=== PATIENT | female | born 1975 | race Caucasian/White ===

== ENCOUNTER 2019-10-23 22:55 | Emergency (ER) | payer OTHER ==
[~2019-10-23] VITALS: Ht 165.1 cm; Wt 58.9 kg
[2019-10-23 22:58] VITALS: BP 116/76
--- NOTE | 2019-10-23 23:25 | NUR ---
assessment made. ERP at bedside.
[2019-10-23] MEDS ORDERED: DEXAMETHASONE 4 MG TABLET ONE (23:38)
[2019-10-23] MEDS ORDERED: IBUPROFEN 800 MG TABLET ONE (23:38)
--- NOTE | 2019-10-23 23:40 | NUR ---
patient medicated. flu / strep specimen obtained and sent to lab.
[2019-10-23 23:55] LABS: RAPID INFLUENZA A Negative (Negative); RAPID INFLUENZA B Negative (Negative)
[2019-10-24] MEDS ORDERED: DEXAMETHASONE 4 MG TABLET PO ONE
[2019-10-24] MEDS ORDERED: IBUPROFEN 800 MG TABLET PO ONE
== END 2019-10-24 01:06 | disposition home or self-care (01) ==
LOC: ED 23:33
DX: J02.8 Acute pharyngitis due to other specified organisms (principal); Z72.89 Other problems related to lifestyle
CPT/HCPCS: 87081; 87400; 87880; 99283

== ENCOUNTER 2019-11-06 10:43 | Inpatient (IN) | payer OTHER ==
[~2019-11-06] VITALS: Ht 165.1 cm; Wt 60.4 kg
--- NOTE | 2019-11-06 10:54 | NUR ---
FROM . SORE THROAT 10/21. L EAR PAIN SINCE MONDYA. ON AMOX FOR EAR INFECTION. SX NOT BETTER. VOMITING/DIZZY X3 DAYS. C/O CHLLS. DRY HEAVING ON ARRIVAL TO ROOM. ABS SNT BS NORMOACTIVE. VSS. TRIED TO TAKE ODT ZOFRAN AT HOME BUT VOMITED. STS HAD NEG CXR/FLU SWA/STREP TEST AT .
[2019-11-06] MEDS ORDERED: PROMETHAZINE 25 MG/ML, 1ML ONE (11:51)
[2019-11-06] MEDS ORDERED: OXYcodone/APAP 5/325MG TABLET ONE (11:52)
--- NOTE | 2019-11-06 11:58 | NUR ---
PT VSS. MEDS PER DEC. FAMILY AT BEDSIDE. LAB AT BEDSIDE. PLAN FOR CT. CALL BLEL IN REACH.
[2019-11-06] MEDS ORDERED: PROMETHAZINE 25 MG/ML, 1ML IM ONE (12:00)
[2019-11-06] MEDS ORDERED: OXYcodone/APAP 5/325MG TABLET PO ONE (12:00)
[2019-11-06 12:23] LABS: ANION GAP 5 mmol/L (5-15); CALCIUM 8.7 mg/dL (8.5-10.1); CHLORIDE 110 mmol/L (98-107)
[2019-11-06 12:25] LABS: BASOPHILS % (AUTO) 1 % (0-1); EOSINOPHILS # (AUTO) 0.03 x10^3/uL (0-0.4); EOSINOPHILS % (AUTO) 0 % (1-7); LYMPHOCYTES # (AUTO) 0.68 x10^3/uL (1-3.4); LYMPHOCYTES % (AUTO) 5 % (22-44); MD NO; MEAN CORPUSCULAR HEMOGLOBIN 29.9 pg (27.0-34.8); MEAN CORPUSCULAR HGB CONC 32.8 g/dL (32.4-35.8); MEAN CORPUSCULAR VOLUME 91.1 fL (80-100); MEAN PLATELET VOLUME 8.7 fL (7.4-10.4); MONOCYTES # (AUTO) 0.53 x10^3/uL (0.2-0.8); MONOCYTES % (AUTO) 4 % (2-9); NEUTROPHILS # (AUTO) 13.52 x10^3/uL (1.8-6.8); NEUTROPHILS % (AUTO) 91 % (42-75); PLATELET COUNT 391 x10^3/uL (130-400); RED BLOOD COUNT 4.23 x10^6/uL (3.82-5.3); RED CELL DISTRIBUTION WIDTH 13.8 % (9.6-15.2)
--- NOTE | 2019-11-06 12:42 | NUR ---
report to [facility]. as
--- NOTE | 2019-11-06 12:55 | NUR ---
REPORT FROM MILLA, ASSUME CARE OF PT AT THIS TIME. IV PLACED FOR CT. POC AND LAB RESULTS DISCUSSED, ALL QUESTIONS ANSWERED. CALL LIGHT WITHIN REACH, FAMILY Terrance BS.
[2019-11-06] MEDS ORDERED: OMNIPAQUE 350 MG/ML, 100ML BOTTLE ONE (13:44)
--- NOTE | 2019-11-06 14:00 | NUR ---
ERP IN TO RECHECK PT.
[2019-11-06] MEDS ORDERED: SODIUM CHLORIDE 0.9% 1,000 ML IV ONE (14:12)
[2019-11-06] MEDS ORDERED: MORPHINE SULFATE 4 MG/ML, 1ML ONE (14:29)
[2019-11-06] MEDS ORDERED: AMPICILLIN/SULBACTAM 3 GM in SODIUM CHLORIDE 0.9% 100 ML IV ONE (14:30)
[2019-11-06] MEDS: MORPHINE SULFATE 4 MG/ML, 1ML IVPush PRN ×2 (14:33→16:45)
--- NOTE | 2019-11-06 14:33 | NUR ---
PT MEDICATED FOR 7/10 PAIN, NS INFUSING PER ERP ORDER.
[2019-11-06] MEDS ORDERED: CEFTRIAXONE PMX 1GM/50ML 50 ML IV ONE (15:00)
--- NOTE | 2019-11-06 15:05 | NUR ---
maria dolores spoke with dr abraham
--- NOTE | 2019-11-06 15:20 | NUR ---
[facility] IN TO SEE PT.
[2019-11-06] MEDS ORDERED: hydrALAzine 20 MG/ML, 1ML IVPush PRN (15:30)
[2019-11-06] MEDS ORDERED: GUAIFENESIN/DM 200-20MG, 10ML UDC PO PRN (15:30)
[2019-11-06] MEDS ORDERED: ONDANSETRON 2MG/ML, 2ML IVPush PRN (15:30)
[2019-11-06] MEDS ORDERED: POLYETHYLENE GLYCOL 17 GM PACKET PO PRN (15:30)
[2019-11-06] MEDS ORDERED: TEMAZEPAM 15 MG CAPSULE PO PRN (15:30)
[2019-11-06] MEDS ORDERED: LABETALOL 5MG/ML, 20ML IVPush PRN (15:30)
[2019-11-06] MEDS ORDERED: BUTALB/APAP/CAFFEINE 50MG/325MG/40MG PO PRN (15:30)
--- NOTE | 2019-11-06 17:15 | NUR ---
CALL X 1, RN WILL CALL BACK.
--- NOTE | 2019-11-06 17:38 | NUR ---
TASK RN: ENT (DR. CEVALLOS) AT BEDSIDE- REPORTS NO NEED FOR FURTHER INTERVENTION (NO SURGERY) OTHER THAN ABX. ALLOWED TO EAT, ETC
[2019-11-06] MEDS ORDERED: KETOROLAC 30 MG/1 ML ONE (17:44)
[2019-11-06] MEDS: KETOROLAC 30 MG/1 ML IV PRN (17:48)
--- NOTE | 2019-11-06 17:49 | NUR ---
TASK RN: MEDICATED PER EMAR FOR LEFT EAR PAIN AT 06/01. ALSO PROVIDED WITH SOME SNACKS.
[2019-11-06] MEDS: D5%-0.45% NACL 1,000 ML IV SCH (18:44)
[2019-11-06 18:45] VITALS: BP 95/61
[2019-11-06] MEDS: CEFTRIAXONE 500 MG in DEXTROSE 5% 50 ML IV SCH (21:25)
[2019-11-07] MEDS: KETOROLAC 30 MG/1 ML IV PRN (01:23)
[2019-11-07 01:25] VITALS: BP 103/70
[2019-11-07] MEDS: D5%-0.45% NACL 1,000 ML IV SCH (01:33)
[2019-11-07 06:35] LABS: BASOPHILS # (AUTO) 0.06 x10^3/uL (0-0.1); BASOPHILS % (AUTO) 1 % (0-1); EOSINOPHILS # (AUTO) 0.21 x10^3/uL (0-0.4); EOSINOPHILS % (AUTO) 2 % (1-7); LYMPHOCYTES # (AUTO) 2.08 x10^3/uL (1-3.4); LYMPHOCYTES % (AUTO) 21 % (22-44); MD NO; MEAN CORPUSCULAR HEMOGLOBIN 29.9 pg (27.0-34.8); MEAN CORPUSCULAR HGB CONC 32.7 g/dL (32.4-35.8); MEAN CORPUSCULAR VOLUME 91.3 fL (80-100); MEAN PLATELET VOLUME 8.4 fL (7.4-10.4); MONOCYTES # (AUTO) 0.66 x10^3/uL (0.2-0.8); MONOCYTES % (AUTO) 7 % (2-9); NEUTROPHILS # (AUTO) 6.89 x10^3/uL (1.8-6.8); NEUTROPHILS % (AUTO) 70 % (42-75); PLATELET COUNT 372 x10^3/uL (130-400); RED BLOOD COUNT 3.65 x10^6/uL (3.82-5.3); RED CELL DISTRIBUTION WIDTH 13.1 % (9.6-15.2)
[2019-11-07] MEDS ORDERED: NORG1TAB77 PO (07:22)
[2019-11-07 08:10] VITALS: BP 94/63
[2019-11-07] MEDS ORDERED: HYDROmorphone 1 MG/ML, 1ML INJ IV PRN (09:00)
[2019-11-07] MEDS ORDERED: HYDROmorphone 2 MG/ML, 1ML ONE (09:28)
[2019-11-07] MEDS: ONDANSETRON ODT 4 MG PO PRN ×2 (09:32→20:55)
[2019-11-07 12:52] VITALS: BP 93/61
[2019-11-07 12:54] VITALS: BP 96/61
[2019-11-07 14:33] VITALS: BP 91/58
[2019-11-07] MEDS: POTASSIUM CHLORIDE 20 MEQ in SODIUM CHLORIDE 0.45% 1,000 ML IV SCH (15:57)
[2019-11-07] MEDS: HYDROmorphone 2 MG/ML, 1ML IVPush PRN ×2 (15:57→20:47)
[2019-11-07 18:26] VITALS: BP 95/57
[2019-11-07] MEDS: CEFTRIAXONE 500 MG in DEXTROSE 5% 50 ML IV SCH (21:56)
[2019-11-07] MEDS: MECLIZINE 25 MG TABLET PO PRN (22:13)
[2019-11-08] MEDS: HYDROmorphone 2 MG/ML, 1ML IVPush PRN ×3 (01:00→09:35)
[2019-11-08 01:35] VITALS: BP 99/60
[2019-11-08] MEDS: MECLIZINE 25 MG TABLET PO PRN (05:29)
[2019-11-08 07:04] VITALS: BP 100/64
[2019-11-08] MEDS ORDERED: OXYC-302 PO (08:39)
[2019-11-08] MEDS ORDERED: PRED20TA PO (08:39)
[2019-11-08] MEDS ORDERED: HYDROmorphone 2 MG/ML, 1ML ONE (09:32)
[2019-11-08] MEDS: POTASSIUM CHLORIDE 20 MEQ in SODIUM CHLORIDE 0.45% 1,000 ML IV SCH (09:39)
[2019-11-08] MEDS ORDERED: CEFD300C37 PO (09:48)
[2019-11-08] MEDS ORDERED: OXYcodone/APAP 5/325MG TABLET PO PRN (10:00)
[2019-11-08 13:12] VITALS: BP 103/69
== END 2019-11-08 13:34 | disposition home or self-care (01) | DRG 153 ==
LOC: ED 12:56 → EDIP 15:23 → 3N 18:22 → DCLOUNGE 11-08 13:34
PROVIDERS: ADMIT Family Medicine; ATTEND Family Medicine
DX: H66.012 Acute suppurative otitis media with spontaneous rupture of ear drum, left ear (principal); H70.002 Acute mastoiditis without complications, left ear; E46 Unspecified protein-calorie malnutrition; H70.92 Unspecified mastoiditis, left ear; Z68.22 Body mass index [BMI] 22.0-22.9, adult
CPT/HCPCS: 36415; 70491; 80048; 82040; 83735; 85025; 96365; 96372; 96375; G0378; J0295; J0696; J1170; J1885; J2405; J2550; J3480; Q0162; Q9967; J2270; J7030; J7512

== ENCOUNTER 2019-11-27 16:33 | Emergency (ER) | payer OTHER ==
[~2019-11-27] VITALS: Ht 165.1 cm; Wt 60.3 kg
[~2019-11-27 16:33] MED LIST: CEFD300C37 PO; NORG1TAB77 PO; OXYC-302 PO; PRED20TA PO
[2019-11-27 16:41] VITALS: BP 121/64
== END 2019-11-27 19:46 ==
LOC: ED 19:34
DX: R55 Syncope and collapse (principal); H92.02 Otalgia, left ear; Z53.21 Procedure and treatment not carried out due to patient leaving prior to being seen by health care provider
CPT/HCPCS: 93005